=== PATIENT | male | born 1970 | race Caucasian/White ===

== ENCOUNTER 2021-05-13 17:41 | Emergency (ER) | payer OTHER ==
[2021-05-13 20:40] VITALS: O2SAT 92
[2021-05-13] MEDS ORDERED: NORCO 5/325 MG PO ONE (21:19)
[2021-05-13] MEDS ORDERED: NORCO 5/325 MG ONE (21:22)
[2021-05-13 21:26] LABS: Hematocrit 44.2 % (42-50); Hemoglobin 14.6 gm/dl (12.5-18.0); Mean Cell Volume 91.1 fl (78-100); Mean Corpuscular Hemoglobin 30.1 pg (26-32); Mean Platelet Volume 10.1 fl (7.5-11.0); Platelet Count 202 K/mm3 (150-450); Red Blood Count 4.85 M/mm3 (4.1-5.6); Red Cell Distribution Width 14.1 % (11.5-14.0)
[2021-05-13 21:39] VITALS: BP 128/71; PULSE 71
[2021-05-13 21:39] LABS: INR 0.88 (0.8-3.0); PROTIME 10.4 SECONDS (9.4-12.5)
[2021-05-13 21:44] LABS: ANION GAP 15.6 MEQ/L (5-15); BLOOD UREA NITROGEN 16 mg/dL (9-20); CHLORIDE 104 mmol/L (98-107); Calcium 8.7 mg/dL (8.4-10.2); Carbon Dioxide 20 mmol/L (22-30); Creatinine 1 0.87 mg/dL (0.66-1.25); EST GLOMERULAR FILTRATION RATE > 60.0 ML/MIN; Glucose 124 mg/dL (74-106); Potassium 4.3 mmol/L (3.5-5.1); SODIUM 135 mmol/L (137-145)
== END 2021-05-13 22:00 | disposition left against medical advice (07) ==
LOC: ED 17:41
DX: N99.821 Postprocedural hemorrhage of a genitourinary system organ or structure following other procedure (principal); Z53.9 Procedure and treatment not carried out, unspecified reason
CPT/HCPCS: 36415; 80048; 85027; 85610; 99283; A9270-GY